=== PATIENT | female | born 1965 | race Caucasian/White ===

== ENCOUNTER 2016-07-31 14:50 | Emergency (ER) | payer OTHER ==
[~2016-07-31] VITALS: Ht 160 cm; Wt 98.0 kg
[~2016-07-31 14:50] MED LIST: CARV12.598 PO; HYDR-3670 PO; LORA1TAB PO; MAXZ25 PO
[2016-07-31 14:52] VITALS: Ht 160 cm; Wt 98.0 kg
[2016-07-31] MEDS ORDERED: ELIM TOP (15:22)
--- NOTE | 2016-07-31 15:26 | ERD ---
ER Documentation Chief Complaint Date/Time DATE: 07/31/16 TIME: 15:23 Chief Complaint rash on b/l arms and back x 3 years on and off HPI Patient is a 51-year-old female with a history of hypertension, anxiety, depression presents emergency department for a rash 3 years. Patient states the rash comes and goes. Patient states the rash is itchy in nature. Patient states that she is concerned she may have infestations in her house. She also states she is concerned that her may have given her the infestations. She does report seeing a lease attendant and having "scrapings done" however the studies of all come back negative. She denies any fevers, chills, nausea, vomiting, abdominal pain, chest pain, shortness of breath or LOC. She denies any suicidal or homicidal ideations at this time. ROS All systems reviewed and are negative except as per history of present illness. Medications Home Meds Active Scripts Permethrin* (Elimite*) 5% Cr, 1 APPLIC TOP ONCE, #1 TUB Prov:ALPA ALMARAZ PA-C 07/31/16 Reported Medications Lorazepam* (Lorazepam*) 1 Mg Tablet, 1 MG PO Q8 Y for ANXIETY, #60 TAB 12/10/15 Triamterene/Hctz* (Maxzide (37.5-25)*) 1 Each Tablet, 1 EACH PO DAILY, #30 TAB 10/31/15 Carvedilol* (Coreg*) 12.5 Mg Tablet, 12.5 MG PO BID, #60 TAB 10/31/15 Hydralazine Hcl* (Hydralazine Hcl*) 10 Mg Tablet, 10 MG PO Q6H Y for ELEVATED BLOOD PRESSURE, #60 TAB 10/31/15 Allergies Allergies: Coded Allergies: Penicillins (Verified Allergy, Severe, 10/31/15) Sulfa (Sulfonamide Antibiotics) (Verified Allergy, Mild, 12/10/15) PMhx/Soc History of Surgery: Yes (CHOLECYSTECTOMY HEMOROIDECTOMY) Anesthesia Reaction: No Hx Neurological Disorder: No Hx Respiratory Disorders: Yes (ASTHMA) Hx Cardiac Disorders: Yes (HYPERTENSION) Hx Psychiatric Problems: Yes (ANXIETY AND DEPRESSION) Hx Miscellaneous Medical Probl: No Hx Alcohol Use: No Hx Substance Use: Yes Hx Tobacco Use: Yes (1/2 PACK A DAY) FmHx Family History: No diabetes Physical Exam Vitals Vital Signs Date Time Temp Pulse Resp B/P Pulse Ox O2 Delivery O2 Flow Rate FiO2 07/31/16 14:52 98.2 98 18 178/89 99 Physical Exam GENERAL: Well-developed, well-nourished male. Appears in no acute distress. HEAD: Normocephalic, atraumatic. EYES: Pupils are equally reactive bilaterally. EOMs grossly intact. No conjunctival erythema. ENT: Moist mucous membranes. No uvula deviation. No kissing tonsils. NECK: Supple. No meningismus. Normal range of motion of the neck. LUNG: Clear to auscultation bilaterally. No rhonchi, wheezing, rales or coarse breath sounds. HEART: Regular rate and rhythm. No murmurs, rubs or gallops. ABDOMEN: No scars, ecchymosis or rashes noted. Soft, nontender, and nondistended. Positive bowel sounds in all four quadrants. No rebound tenderness , no guarding. (-) McBurney's point tenderness. No CVA tenderness. BACK: No midline tenderness. EXTREMITIES: Equal pulses bilaterally. No peripheral clubbing, cyanosis or edema. No unilateral leg swelling. NEUROLOGIC: Alert and oriented. Moving all four extremities without any difficulty. Normal speech. Steady gait. SKIN: Normal color. Warm and dry. Tiny, erythematous, excoriated lesions noted on the patient's bilateral upper extremities. Procedures/MDM MEDICAL DECISION MAKING: This is a 51-year-old female who presents to the emergency department for concerns of a intermittent rash for the last 3 years. Patient states she is concerned her gave her the rash. Vital signs were reviewed. Patient was afebrile. Patient is not diabetic. Skin exam revealed tiny, erythematous excoriated lesions.. Given these findings, the patients presentation is most consistent with scabies. I have a much lower clinical concern for necrotizing fasciitis, sepsis, gangrene, Nilesh-Jamar syndrome, toxic epidural necrolysis , abscess, cellulitis, herpes zoster, viral exanthem, anaphylaxis, allergic reaction, impetigo, dermatitis. Patient was advised to take medication as prescribed. Patient was advised to conduct proper cleaning of her house and bed sheets. PRESCRIPTIONS: Permethrin DISCHARGE: At this time, patient is stable for discharge and outpatient management. I have advised the patient to avoid any new products, creams or possible allergens. I have advised the patient to avoid scratching the lesions. I have instructed the patient to follow-up with his/her primary care physician in 1-2 days. She was given referral information for lease attendant. Patient advised to seek dermatology consult on outpatient basis for further biopsies of her ongoing lesions. I have instructed the patient to promptly return to the ER at any time for any new or worsening symptoms including increased pain, fever, redness, swelling, warmth, difficulty breathing or vomiting. The patient and/or family expressed understanding of and agreement with this plan. All questions were answered. Home care instructions were provided. Departure Diagnosis: Primary Impression: Rash Additional Impression: Scabies infestation Condition: Stable Patient Instructions: Self-Care for Skin Rashes, Scabies Additional Instructions: Call your primary care doctor TOMORROW for an appointment during the next 1-2 days.See the doctor sooner or return here if your condition worsens before your appointment time. Follow up with lease attendant. See referral list. ALPA ALMARAZ PA-C Jul 31, 2016 15:26
== END 2016-07-31 15:22 | disposition home or self-care (01) ==
LOC: E/R 14:50
DX: R21 Rash and other nonspecific skin eruption (principal); B86 Scabies; I10 Essential (primary) hypertension; J45.909 Unspecified asthma, uncomplicated; F17.210 Nicotine dependence, cigarettes, uncomplicated
CPT/HCPCS: 99283